=== PATIENT | male | born 1970 | race Caucasian/White ===

== ENCOUNTER 2018-01-31 15:42 | Emergency (ER) | payer OTHER, SELFPAY ==
[2018-01-31 15:44] VITALS: BP 122/84; PULSE 95; RESP 20; TEMP 36.6; O2SAT 95
--- NOTE | 2018-01-31 17:03 | ED.EYEPROB ---
HPI - Eye Problem <RAHDA Baer - Last Filed: 01/31/18 22:29> General Chief complaint: Eye Problems Stated complaint: SOMETHING IN EYE Time Seen by Provider: 01/31/18 17:03 Source: patient Mode of arrival: ambulatory Limitations: no limitations History of Present Illness HPI Narrative: 48-year-old male here for complaint of a feeling of foreign body to his left eye. He states that he was grinding on aluminum earlier today when he felt like a foreign body came into his eye. He states that he did have safety glasses on. He denies any visual changes. No other injuries or concerns. He does not know his last tetanus. chief complaint: foreign body Related Data Home Medications Medication Instructions Recorded Confirmed amlodipine 2.5 mg PO DAILY 01/31/18 01/31/18 levothyroxine 1 tab PO DAILY 01/31/18 01/31/18 Previous Rx's Medication Instructions Recorded erythromycin 0.5 inch EYE-LEFT QID 7 Days #1 01/31/18 gram Allergies Allergy/AdvReac Type Severity Reaction Status Date / Time No Known Drug Allergies Allergy Verified 01/31/18 15:50 Review of Systems <RADHA Baer - Last Filed: 01/31/18 22:29> Constitutional Denies chills, Denies fever(s), Denies lethargy and Denies weakness Eyes Comments: Sensation of foreign body left eye ENT Ears, Nose, Mouth, and Throat: Denies change in voice, Denies neck pain and Denies sore throat Cardiovascular Denies chest pain, Denies irregular heart rhythm, Denies lightheadedness, Denies palpitations, Denies dyspnea, Denies dyspnea on exertion and Denies orthopnea Respiratory Denies cough, Denies dyspnea, Denies dyspnea on exertion and Denies wheezing Gastrointestinal Gastrointestinal: Denies abdominal pain, Denies change in bowel habits, Denies diarrhea, Denies nausea and Denies vomiting Musculoskeletal Denies neck pain Integumentary/Breasts Denies pruritus, Denies erythema, Denies rash and Denies wounds Neurologic Denies confusion and Denies weakness Psychiatric Denies anxiety, Denies confusion, Denies depression, Denies homicidal ideation and Denies suicidal ideation Endocrine Denies palpitations Allergic/Immunologic Denies wheezing Exam <RADHA Baer - Last Filed: 01/31/18 22:29> Initial Vital Signs Initial Vital Signs: Vital Signs Temperature 97.9 F 01/31/18 15:44 Pulse Rate 95 H 01/31/18 15:44 Respiratory Rate 20 01/31/18 15:44 Blood Pressure 122/84 H 01/31/18 15:44 Pulse Oximetry 95 01/31/18 15:44 Const General: cooperative and well developed Nutritional Appearance: well nourished Orientation: alert, awake, oriented x3 and not confused [facility] Mouth: oral mucosae normal and moist mucous membranes Eyes Conjunctivae: conjunctivae normal Sclera: sclerae normal Pupils: PERRL EOM: EOM intact bilaterally Other: Multiple small metallic foreign bodies in eye were flushed out with normal saline. No fluorescein uptake. Resp Effort & Inspection: normal respiratory effort, able to speak in complete sentences, no respiratory distress and no use of accessory muscles Auscultation: clear to auscultation bilaterally, no rales, no rhonchi and no wheezes Cardio Rate: regular rate Rhythm: regular rhythm Heart Sounds: no click, no gallops, no murmurs and no rubs Skin General: no rashes or lesions noted, No jaundice and No petechiae Neuro General: alert, oriented x3, gait normal and no focal motor deficits Speech: speech normal <Ml Dick DO - Last Filed: 02/01/18 04:12> Initial Vital Signs Initial Vital Signs: Vital Signs Temperature 97.9 F 01/31/18 15:44 Pulse Rate 95 H 01/31/18 15:44 Respiratory Rate 20 01/31/18 15:44 Blood Pressure 122/84 H 01/31/18 15:44 Pulse Oximetry 95 01/31/18 15:44 Course <RADHA Baer - Last Filed: 01/31/18 22:29> Orders Ordered: Discontinued Medications Acetaminophen (Tylenol) 650 mg PO NOW ONE Stop: 01/31/18 18:18 Last Admin: 01/31/18 18:19 Dose: 650 mg Diphtheria/Tetanus/Acell Pertussis (Adacel) 0.5 ml IM .ONCE ONE Stop: 01/31/18 18:13 Last Admin: 01/31/18 18:18 Dose: 0.5 ml Vital Signs - 8 hr 01/31/18 15:44 01/31/18 18:59 Temperature 97.9 F Pulse Rate 95 H 73 Respiratory Rate 20 18 Blood Pressure 122/84 H 131/82 H Pulse Oximetry 95 98 <Ml Dick DO - Last Filed: 02/01/18 04:12> Orders Ordered: Discontinued Medications Acetaminophen (Tylenol) 650 mg PO NOW ONE Stop: 01/31/18 18:18 Last Admin: 01/31/18 18:19 Dose: 650 mg Diphtheria/Tetanus/Acell Pertussis (Adacel) 0.5 ml IM .ONCE ONE Stop: 01/31/18 18:13 Last Admin: 01/31/18 18:18 Dose: 0.5 ml Vital Signs - 8 hr 01/31/18 15:44 01/31/18 18:59 Temperature 97.9 F Pulse Rate 95 H 73 Respiratory Rate 20 18 Blood Pressure 122/84 H 131/82 H Pulse Oximetry 95 98 MDM - Eye Problem <RADHA Baer - Last Filed: 01/31/18 22:29> MDM Narrative Medical decision making narrative: Multiple small flecks of metallic foreign bodies were seen on exam. These were flushed out with normal saline. Normal exam afterwards. Fluorescein exam was negative. Visual acuity was normal. Tetanus was updated in the emergency room. Due to multiple foreign bodies to the left eye he is covered with erythromycin. Follow up with primary care provider in the next few days for re-evaluation. For any worsening symptoms return to the emergency room. 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 Due to multiple foreign bodies you her prescribed antibiotic ointment called erythromycin use as directed. [id number] Tylenol or Motrin as needed for any discomfort. Tetanus was updated in the emergency room. Follow up with primary care provider the next several days for re-evaluation. Recommend using closer fitting safety glasses especially when doing overhead work to prevent future problems. For any worsening symptoms return to the emergency room. Prescriptions: New erythromycin 5 mg/gram (0.5 %) ointment 0.5 inch EYE-LEFT QID 7 Days Qty: 1 RF: 0 No Action amlodipine 2.5 mg tablet 2.5 mg PO DAILY RF: 0 levothyroxine 125 mcg tablet 1 tab PO DAILY RF: 0 Referrals: [facility] [Provider Group] <Ml Dick DO - Last Filed: 02/01/18 04:12> Cosign ED Attending Gayle Attestation: I was immediately available in the department for consultation. Documentation has been reviewed. I agree with assessment and plan.
[2018-01-31] MEDS: TET,DIPH,PERTUSS(ACELL),VAC/PF 0.5 ML SYRINGE IM (18:18)
[2018-01-31] MEDS: ACETAMINOPHEN 325 MG TABLET 650 MG PO (18:19)
[2018-01-31 18:59] VITALS: BP 131/82; PULSE 73; RESP 18; O2SAT 98
== END 2018-01-31 19:00 | disposition home or self-care (01) ==
PROVIDERS: Emergency Provider Nurse Practitioner Family
DX: T15.12XA Foreign body in conjunctival sac, left eye, initial encounter (principal); W31.1XXA Contact with metalworking machines, initial encounter
CPT/HCPCS: 90471; 99283; 90715